=== PATIENT | male | born 1990 | race Two or more races ===

== ENCOUNTER 2021-03-20 12:25 | Inpatient (IN) | payer OTHER ==
[~2021-03-20] VITALS: Ht 165.1 cm; Wt 120.0 kg
[2021-03-20] MEDS ORDERED: ONDANSETRON HCL 4 MG/2 ML VIAL IV ONE (13:15)
[2021-03-20] MEDS ORDERED: PANTOPRAZOLE 40 MG/10 ML VIAL INJ IV ONE (13:15)
[2021-03-20] MEDS ORDERED: SODIUM CHLORIDE 0.9% 1,000 ML IVB ONE (13:15)
[2021-03-20] MEDS ORDERED: MORPHINE SULFATE 4 MG/ML SYR/VIAL IV ONE (13:15)
[2021-03-20 15:13] LABS: Urine Bacteria FEW /hpf (None Seen); Urine Blood 2+ /uL (Negative); Urine Mucus FEW (None Seen); Urine Specific Gravity 1.039 (1.001-1.035); Urine WBC 46 /hpf (0 - 3)
[2021-03-20 15:40] LABS: Potassium 3.8 mmol/L (3.5-5.1)
[2021-03-20 16:20] LABS: Hematocrit 39.3 % (41.0-53.0); Hemoglobin 14.9 g/dL (13.5-17.5); Mean Corpuscular Hemoglobin 32.6 pg (28.0-32.0); Mean Corpuscular Volume 86.2 fL (80.0-100.0); Red Blood Cells 4.56 10^6/uL (4.5-5.90); Red Cell Distribution Width 14.2 % (11.8-14.3)
[2021-03-20 16:21] LABS: Lipase 1013 U/L (73-393)
[2021-03-20 16:25] LABS: White Blood Cell 26.3 10^3/uL (4.4-10.8)
[2021-03-20 16:27] LABS: Mean Corpuscular Hgb Conc. 37.9 g/dL (32.0-36.0)
[2021-03-20 16:28] LABS: Band Neutrophils % (manual) 0; Basophils % (manual) 0 (0.0-2.0); Blast Cells 0; Eosinophils % (manual) 0 (0-7); Metamyelocytes % 0; Myelocytes % 0; Promyelocytes % 0; Reactive Lymphocytes 0
[2021-03-20 16:36] LABS: Amylase 170 U/L (25-115)
[2021-03-20 17:09] LABS: Bilirubin, Total 4.2 mg/dL (0.2-1.0)
[2021-03-20 17:10] LABS: Albumin 3.3 g/dL (3.4-5.0); Anion Gap 11.2 (5-15); BUN/Creatinine Ratio 5.3; Carbon Dioxide 22.8 mmol/L (21-32)
[2021-03-20 17:11] LABS: Aspartate Aminotransferase 15.6 U/L (15-37)
[2021-03-20 17:12] LABS: Lymphocytes % (manual) 7 (10.0-50.0); Monocytes % (manual) 8 (0-12)
[2021-03-20] MEDS ORDERED: metroNIDAZOLE 500MG/100ML 100 ML IV ONE (17:15)
[2021-03-20] MEDS ORDERED: PIPERACILLIN-TAZOB 3.375GM 100 ML IV ONE (17:15)
[2021-03-20] MEDS ORDERED: InsuLIN REG 1unit/0.01ml Soln (100units/ml) IV ONE (17:45)
[2021-03-20] MEDS ORDERED: NITROGLYCERIN 0.4 MG SL TAB SL PRN (18:15)
[2021-03-20] MEDS ORDERED: MORPHINE SULFATE INJECTION 2 MG/ML SYRG IV PRN ×2 (18:15→19:00)
[2021-03-20] MEDS ORDERED: DEXTROSE (50%) 50ML SYRG IV PRN (19:00)
[2021-03-20] MEDS ORDERED: cefTRIAXone 1GM/50ML D5W 50 ML IV ONE (19:00)
[2021-03-20] MEDS: SODIUM CHLORIDE 0.9% 1,000 ML IV SCH (20:10)
[2021-03-20] MEDS: ACCU-CHEK COMFORT CURVE STRIP VI SCH (20:10)
[2021-03-20] MEDS: InsuLIN REG 1unit/0.01ml Soln (100units/ml) SC SCH (20:10)
[2021-03-20] MEDS: MORPHINE SULFATE INJECTION 2 MG/ML SYRG IV PRN (20:48)
[2021-03-20 22:46] VITALS: BP 149/81
[2021-03-20] MEDS ORDERED: ATOR-47 PO (23:02)
[2021-03-20] MEDS ORDERED: INSLANTI SC (23:02)
[2021-03-20] MEDS ORDERED: METF-916 PO (23:02)
[2021-03-20] MEDS ORDERED: FENO160T8 PO (23:02)
[2021-03-21] MEDS: MORPHINE SULFATE INJECTION 2 MG/ML SYRG IV PRN ×5 (00:20→20:14)
[2021-03-21] MEDS: ACCU-CHEK COMFORT CURVE STRIP VI SCH ×7 (00:35→23:55)
[2021-03-21] MEDS: metroNIDAZOLE 500MG/100ML 100 ML IV SCH ×3 (00:35→17:46)
[2021-03-21] MEDS: InsuLIN REG 1unit/0.01ml Soln (100units/ml) SC SCH ×7 (00:37→23:55)
[2021-03-21] MEDS: SODIUM CHLORIDE 0.9% 1,000 ML IV SCH ×2 (03:41→08:17)
[2021-03-21 05:00] VITALS: BP 139/88
[2021-03-21 09:19] VITALS: BP 146/93
[2021-03-21] MEDS: cefTRIAXone 1GM/50ML D5W 50 ML IV SCH (09:19)
[2021-03-21 11:49] LABS: Potassium 4.7 mmol/L (3.5-5.1)
[2021-03-21 12:01] LABS: Basophils # (auto) 0.2 10 ^3/uL (0-0.2); Basophils % (auto) 0.8 % (0.0-2.0); Eosinophils # (auto) 0 10 ^3/uL (0-0.8); Eosinophils % (auto) 0.2 % (0.0-7.0); Hematocrit 46.1 % (41.0-53.0); Hemoglobin 15.3 g/dL (13.5-17.5); Lymphocytes % (auto) 9.8 % (10.0-50.0); Mean Corpuscular Hemoglobin 28.8 pg (28.0-32.0); Mean Corpuscular Hgb Conc. 33.1 g/dL (32.0-36.0); Mean Corpuscular Volume 86.9 fL (80.0-100.0); Monocytes # (auto) 1.1 10 ^3/uL (0-1.3); Monocytes % (auto) 5.5 % (0.0-12.0); Neutrophils % (auto) 83.7 % (37.0-80.0); Nucleated Red Blood Cells % 0.3 %; Red Blood Cells 5.31 10^6/uL (4.5-5.90); Red Cell Distribution Width 14.5 % (11.8-14.3); White Blood Cell 20.3 10^3/uL (4.4-10.8)
[2021-03-21 13:00] VITALS: BP 124/70
[2021-03-21 14:47] LABS: BUN/Creatinine Ratio 9.1
[2021-03-21 14:48] LABS: Albumin 2.7 g/dL (3.4-5.0); Bilirubin, Total 1.7 mg/dL (0.2-1.0)
[2021-03-21] MEDS: LACTATED RINGER'S 1,000 ML IV SCH ×2 (15:39→21:33)
[2021-03-21] MEDS: PROMETHAZINE HCL 25 MG/ML 1ML IV PRN ×2 (16:16→20:15)
[2021-03-21 17:11] VITALS: BP 144/87
[2021-03-21 22:00] VITALS: BP 138/88
[2021-03-22] MEDS: PROMETHAZINE HCL 25 MG/ML 1ML IV PRN ×4 (00:01→21:48)
[2021-03-22] MEDS: metroNIDAZOLE 500MG/100ML 100 ML IV SCH ×3 (00:03→16:32)
[2021-03-22] MEDS: MORPHINE SULFATE INJECTION 2 MG/ML SYRG IV PRN ×3 (03:51→08:08)
[2021-03-22] MEDS: ACCU-CHEK COMFORT CURVE STRIP VI SCH ×4 (04:04→16:26)
[2021-03-22] MEDS: LACTATED RINGER'S 1,000 ML IV SCH (04:04)
[2021-03-22] MEDS: InsuLIN REG 1unit/0.01ml Soln (100units/ml) SC SCH ×5 (04:05→22:05)
[2021-03-22 05:47] VITALS: BP 137/80
[2021-03-22 06:24] LABS: Basophils # (auto) 0.1 10 ^3/uL (0-0.2); Basophils % (auto) 0.5 % (0.0-2.0); Eosinophils # (auto) 0 10 ^3/uL (0-0.8); Eosinophils % (auto) 0.2 % (0.0-7.0); Hematocrit 45.3 % (41.0-53.0); Hemoglobin 15.8 g/dL (13.5-17.5); Lymphocytes # (auto) 1.5 10 ^3/uL (0.4-5.4); Lymphocytes % (auto) 7.9 % (10.0-50.0); Mean Corpuscular Hemoglobin 29.8 pg (28.0-32.0); Mean Corpuscular Volume 85.2 fL (80.0-100.0); Monocytes # (auto) 1.1 10 ^3/uL (0-1.3); Monocytes % (auto) 5.6 % (0.0-12.0); Neutrophils # (auto) 16.5 10 ^3/uL (1.6-8.6); Neutrophils % (auto) 85.8 % (37.0-80.0); Nucleated Red Blood Cells % 0.1 %; Red Blood Cells 5.31 10^6/uL (4.5-5.90); Red Cell Distribution Width 14.3 % (11.8-14.3); White Blood Cell 19.2 10^3/uL (4.4-10.8)
[2021-03-22 06:39] LABS: Anion Gap 6 (5-15); Calcium 7.7 mg/dL (8.5-10.1); Carbon Dioxide 21 mmol/L (21-32); Chloride 103 mmol/L (98-107); Glucose 218 mg/dL (74-106); Sodium 130 mmol/L (136-145)
[2021-03-22 06:42] LABS: Blood Urea Nitrogen 8 mg/dL (7-18); GFR African American 266 mL/min; GFR Non-African American 220 mL/min; Lipase 472 U/L (73-393)
[2021-03-22] MEDS ORDERED: INSLANTI SC (07:08)
[2021-03-22 08:37] VITALS: BP 146/76
[2021-03-22] MEDS: cefTRIAXone 1GM/50ML D5W 50 ML IV SCH (09:11)
[2021-03-22 09:23] LABS: Potassium 5.6 mmol/L (3.5-5.1)
[2021-03-22] MEDS: SODIUM CHLORIDE 0.9% 1,000 ML IV SCH ×3 (09:45→21:49)
[2021-03-22 10:07] LABS: Triglycerides 1325 mg/dL (< 150)
[2021-03-22] MEDS: HYDROmorphone HCL 2 MG/ML VL IV PRN ×4 (10:58→21:49)
[2021-03-22 13:29] VITALS: BP 145/75
[2021-03-22] MEDS ORDERED: SODIUM CHLORIDE 0.9% 1,000 ML IV ONE (14:00)
[2021-03-22 17:42] VITALS: BP 140/79
[2021-03-22] MEDS: METOPROLOL TARTRATE 25 MG TAB PO SCH (18:51)
[2021-03-22] MEDS: ACETAMINOPHEN 325 MG TAB PO PRN (20:48)
[2021-03-22 21:43] VITALS: BP 141/81
[2021-03-22] MEDS: ATORVASTATIN 20 MG TAB PO SCH (21:49)
[2021-03-22] MEDS ORDERED: INSULIN LANTUS (GLARGINE) 1 /0.01ml (100units/ml) SC SCH (22:00)
[2021-03-23] MEDS: HYDROmorphone HCL 2 MG/ML VL IV PRN ×6 (00:53→21:07)
[2021-03-23] MEDS: metroNIDAZOLE 500MG/100ML 100 ML IV SCH ×3 (00:54→17:08)
[2021-03-23 04:44] VITALS: BP 124/82
[2021-03-23] MEDS: PROMETHAZINE HCL 25 MG/ML 1ML IV PRN (05:32)
[2021-03-23] MEDS: SODIUM CHLORIDE 0.9% 1,000 ML IV SCH ×3 (05:34→19:30)
[2021-03-23] MEDS: InsuLIN REG 1unit/0.01ml Soln (100units/ml) SC SCH ×3 (05:56→17:08)
[2021-03-23 09:00] VITALS: BP 144/87
[2021-03-23] MEDS: Fenofibrate 160 MG PO SCH ×2 (09:36→10:00)
[2021-03-23] MEDS: cefTRIAXone 1GM/50ML D5W 50 ML IV SCH (09:36)
[2021-03-23] MEDS: METOPROLOL TARTRATE 25 MG TAB PO SCH ×2 (09:37→21:06)
[2021-03-23] MEDS: ACETAMINOPHEN 325 MG TAB PO PRN ×2 (10:11→17:09)
[2021-03-23 13:00] VITALS: BP 136/80
[2021-03-23 16:50] VITALS: BP_SYST 104; BP_SYST 120; BP_DIAS 73; BP_DIAS 83
[2021-03-23] MEDS: ATORVASTATIN 20 MG TAB PO SCH (21:05)
[2021-03-24] MEDS: InsuLIN REG 1unit/0.01ml Soln (100units/ml) SC SCH ×5 (00:04→21:55)
[2021-03-24] MEDS: HYDROmorphone HCL 2 MG/ML VL IV PRN ×5 (00:05→15:29)
[2021-03-24] MEDS: metroNIDAZOLE 500MG/100ML 100 ML IV SCH ×3 (01:27→18:38)
[2021-03-24] MEDS: SODIUM CHLORIDE 0.9% 1,000 ML IV SCH ×4 (01:51→21:45)
[2021-03-24 05:00] VITALS: BP 139/87
[2021-03-24 09:00] VITALS: BP 134/78
[2021-03-24] MEDS: cefTRIAXone 1GM/50ML D5W 50 ML IV SCH (09:00)
[2021-03-24] MEDS: Fenofibrate 160 MG PO SCH (10:00)
[2021-03-24] MEDS: METOPROLOL TARTRATE 25 MG TAB PO SCH ×2 (11:10→21:42)
[2021-03-24 13:00] VITALS: BP 143/76
[2021-03-24 15:33] LABS: Basophils # (auto) 0.1 10 ^3/uL (0-0.2); Basophils % (auto) 0.3 % (0.0-2.0); Eosinophils # (auto) 0.2 10 ^3/uL (0-0.8); Hematocrit 38.7 % (41.0-53.0); Lymphocytes # (auto) 1.3 10 ^3/uL (0.4-5.4); Lymphocytes % (auto) 8.3 % (10.0-50.0); Mean Corpuscular Hemoglobin 28.8 pg (28.0-32.0); Mean Corpuscular Hgb Conc. 33.6 g/dL (32.0-36.0); Mean Corpuscular Volume 85.6 fL (80.0-100.0); Monocytes # (auto) 1.3 10 ^3/uL (0-1.3); Monocytes % (auto) 8.5 % (0.0-12.0); Neutrophils # (auto) 12.5 10 ^3/uL (1.6-8.6); Neutrophils % (auto) 81.9 % (37.0-80.0); Red Blood Cells 4.52 10^6/uL (4.5-5.90); Red Cell Distribution Width 14.8 % (11.8-14.3); White Blood Cell 15.3 10^3/uL (4.4-10.8)
[2021-03-24 16:02] LABS: Calcium 7.5 mg/dL (8.5-10.1); Potassium 3.4 mmol/L (3.5-5.1)
[2021-03-24 16:08] LABS: Albumin 2.1 g/dL (3.4-5.0); BUN/Creatinine Ratio 21.3; Bilirubin, Total 0.8 mg/dL (0.2-1.0); Total Protein 5.6 g/dL (6.4-8.2)
[2021-03-24 16:36] VITALS: BP 147/87
[2021-03-24] MEDS ORDERED: POTASSIUM CHL 20 Meq TABLET PO ONE (17:15)
[2021-03-24] MEDS: ATORVASTATIN 20 MG TAB PO SCH (21:41)
[2021-03-24 22:00] VITALS: BP 147/84
[2021-03-25] MEDS: HYDROmorphone HCL 2 MG/ML VL IV PRN ×5 (00:34→21:22)
[2021-03-25] MEDS: metroNIDAZOLE 500MG/100ML 100 ML IV SCH ×3 (02:00→17:46)
[2021-03-25] MEDS: SODIUM CHLORIDE 0.9% 1,000 ML IV SCH ×3 (04:14→17:48)
[2021-03-25 05:00] VITALS: BP 146/84
[2021-03-25 06:10] LABS: Basophils # (auto) 0 10 ^3/uL (0-0.2); Basophils % (auto) 0.2 % (0.0-2.0); Eosinophils # (auto) 0.2 10 ^3/uL (0-0.8); Hemoglobin 13.2 g/dL (13.5-17.5); Lymphocytes # (auto) 1.2 10 ^3/uL (0.4-5.4); Mean Corpuscular Hemoglobin 29.3 pg (28.0-32.0); Mean Corpuscular Hgb Conc. 33.8 g/dL (32.0-36.0); Mean Corpuscular Volume 86.8 fL (80.0-100.0); Monocytes # (auto) 1.4 10 ^3/uL (0-1.3); Monocytes % (auto) 9.1 % (0.0-12.0); Neutrophils # (auto) 12.2 10 ^3/uL (1.6-8.6); Neutrophils % (auto) 81.7 % (37.0-80.0); Red Blood Cells 4.49 10^6/uL (4.5-5.90); Red Cell Distribution Width 14.6 % (11.8-14.3)
[2021-03-25] MEDS: InsuLIN REG 1unit/0.01ml Soln (100units/ml) SC SCH ×4 (06:45→21:20)
[2021-03-25 07:07] LABS: Potassium 3.5 mmol/L (3.5-5.1)
[2021-03-25 07:13] LABS: BUN/Creatinine Ratio 25.7; Calcium 7.6 mg/dL (8.5-10.1); Magnesium 2.6 mg/dL (1.6-2.6)
[2021-03-25 08:32] VITALS: BP 142/87
[2021-03-25] MEDS: cefTRIAXone 1GM/50ML D5W 50 ML IV SCH (09:26)
[2021-03-25] MEDS: Fenofibrate 160 MG PO SCH (10:34)
[2021-03-25] MEDS: METOPROLOL TARTRATE 25 MG TAB PO SCH ×2 (10:35→21:21)
[2021-03-25 12:30] VITALS: BP 155/89
[2021-03-25 16:54] VITALS: BP 157/89
[2021-03-25] MEDS: ATORVASTATIN 20 MG TAB PO SCH (21:20)
[2021-03-25 21:30] VITALS: BP 145/85
[2021-03-26] MEDS: metroNIDAZOLE 500MG/100ML 100 ML IV SCH ×2 (01:40→09:40)
[2021-03-26] MEDS: HYDROmorphone HCL 2 MG/ML VL IV PRN ×3 (02:59→12:45)
[2021-03-26 05:00] VITALS: BP 141/79
[2021-03-26] MEDS: InsuLIN REG 1unit/0.01ml Soln (100units/ml) SC SCH ×2 (06:15→11:43)
[2021-03-26 09:00] VITALS: BP 148/88
[2021-03-26] MEDS: cefTRIAXone 1GM/50ML D5W 50 ML IV SCH (09:39)
[2021-03-26] MEDS: Fenofibrate 160 MG PO SCH (09:40)
[2021-03-26] MEDS: METOPROLOL TARTRATE 25 MG TAB PO SCH (09:40)
[2021-03-26] MEDS ORDERED: FLUCONAZOLE 200MG/100ML 100 ML IV ONE (12:15)
[2021-03-26 13:00] VITALS: BP 143/86
[2021-03-26 14:25] VITALS: BP 143/86
== END 2021-03-26 16:45 | disposition home or self-care (01) | DRG 439 ==
LOC: ER 12:25 → TELE 18:13 → TELE-WESTW 21:40
PROVIDERS: ADMIT Internal Medicine; ATTEND Internal Medicine
DX: K85.90 Acute pancreatitis without necrosis or infection, unspecified (principal); E87.1 Hypo-osmolality and hyponatremia; N17.9 Acute kidney failure, unspecified; N39.0 Urinary tract infection, site not specified; Z68.41 Body mass index [BMI] 40.0-44.9, adult; B49 Unspecified mycosis; K86.1 Other chronic pancreatitis; K80.20 Calculus of gallbladder without cholecystitis without obstruction; I10 Essential (primary) hypertension; K76.0 Fatty (change of) liver, not elsewhere classified; E66.9 Obesity, unspecified; E78.1 Pure hyperglyceridemia; E11.65 Type 2 diabetes mellitus with hyperglycemia; E66.01 Morbid (severe) obesity due to excess calories; Z20.822 Contact with and (suspected) exposure to COVID-19; Z82.49 Family history of ischemic heart disease and other diseases of the circulatory system; Z83.3 Family history of diabetes mellitus; Z79.84 Long term (current) use of oral hypoglycemic drugs; D72.829 Elevated white blood cell count, unspecified
CPT/HCPCS: 36415; 71045; 74176; 78226; 80048; 80053; 81001; 82150; 82962; 83036; 83690; 83735; 84132; 84478; 85007; 85025; 85027; 87086; 87088; 87186; 87426; 93306; 96361; 96365; 96366; 96368; 96375; C9113; G0378; J0696; J1450; J1815; J2405; J2543; J3490